=== PATIENT | male | born 1995 | race Caucasian/White ===

== ENCOUNTER 2016-10-04 13:00 | Emergency (ER) | payer SELFPAY ==
[2016-10-04 13:01] VITALS: BMI 33.4
[2016-10-04 13:05] VITALS: BP 103/51; PULSE 68; RESP 18; TEMP 98.3; O2SAT 98
[2016-10-04] MEDS ORDERED: Albuterol 0.083% Inhal Sol (2.5 mg/3 mL) UD INH STA (13:24)
[2016-10-04] MEDS ORDERED: Albuterol 0.083% Inhal Sol (2.5 mg/3 mL) UD ONE (13:29)
--- NOTE | 2016-10-04 13:49 | C.PDOC ---
History Of Present Illness 21 year old male presents to the ED with complaints of intermittent productive cough with yellow sputum present for the last four week. Patient has a history of asthma as a child that he states he has out grown. He notes pleuric pain, fever, and chills but denies runny nose, SOB, and any sick contacts. Time Seen by Provider: 10/04/16 13:10 Chief Complaint (Nursing): Cough, Cold, Congestion Past Medical History Vital Signs: Last Vital Signs Temp 98.3 F 10/04/16 13:04 Pulse 68 10/04/16 13:04 Resp 18 10/04/16 13:04 BP 103/51 L 10/04/16 13:04 Pulse Ox 98 10/04/16 13:51 - [employer] Procedures UNILAT ING OMAR REP NOS (11/16/12) - Social History Hx Alcohol Use: No Hx Substance Use: No - Immunization History Hx Tetanus Toxoid Vaccination: No Hx Influenza Vaccination: No Hx Pneumococcal Vaccination: No Review Of Systems Constitutional: Positive for: Fever, Chills ENT: Positive for: Throat Pain (mild sore throat). Negative for: Nose Discharge Respiratory: Positive for: Cough (intermittent productive cough ), Pleuritic Pain, Sputum (yellow ). Negative for: Shortness of Breath Physical Exam - Physical Exam Appears: Non-toxic, No Acute Distress Skin: Warm, Dry Ear(s): Bilateral: Normal Oral Mucosa: Moist Throat: Normal Cardiovascular: Rhythm Regular, No Murmur Respiratory: No Rales, No Rhonchi, No Stridor, No Wheezing, Other (mild decreased air entry bilaterally ) Gastrointestinal/Abdominal: Soft, No Tenderness, No Distention, No Guarding, No Rebound Extremity: Normal ROM, No Tenderness Neurological/Psych: Oriented x3 ED Course And Treatment O2 Sat by Pulse Oximetry: 98 - Radiology CXR: Interpreted by Me, Viewed By Me CXR Interpretation: Yes: No Acute Disease Progress Note: Patient was given Alburterol, benzonatate, and a nebulizer treatment and prescribed the same. Disposition Counseled Patient/Family Regarding: Studies Performed, Diagnosis, Need For Followup, Rx Given - Disposition Referrals: [facility] [Outside] Disposition Time: 13:45 Additional Instructions: FOLLOW UP WITH YOUR DOCTOR IN 1-2 DAYS USE MEDICATIONS DIRECTED RETURN TO ER IF SYMPTOMS WORSEN Prescriptions: Naproxen [Naprosyn Tab] 375 mg PO BID PRN #20 tab PRN Reason: pain Benzonatate [Tessalon Perles] 100 mg PO BID PRN #15 sgl PRN Reason: Cough Albuterol HFA [Ventolin HFA 90 mcg/actuation (8 g)] 0.09 mg IH Q4 PRN #1 puff PRN Reason: Wheezing Instructions: Upper Respiratory Infection (ED), Viral Syndrome (ED) Forms: School Excuse Print Language: ANGOLAN - POA Present On Arrival: None - Clinical Impression Clinical Impression: Viral disease, Upper respiratory infection - Scribe Statement The provider has reviewed the documentation as recorded by the Scribe Provider Attestation: Gisselle King All medical record entries made by the Scribe were at my direction and personally dictated by me. I have reviewed the chart and agree that the record accurately reflects my personal performance of the history, physical exam, medical decision making, and the department course for this patient. I have also personally directed, reviewed, and agree with the discharge instructions and disposition.
--- NOTE | 2016-10-04 16:39 | RAD ---
HISTORY: perisistent cough COMPARISON: No prior. TECHNIQUE: Chest PA and lateral FINDINGS: LUNGS: No active pulmonary disease. PLEURA: No significant pleural effusion identified. No pneumothorax apparent. CARDIOVASCULAR: Normal. OSSEOUS STRUCTURES: No significant abnormalities. VISUALIZED UPPER ABDOMEN: Normal. OTHER FINDINGS: None. IMPRESSION: No active disease.
== END 2016-10-04 14:29 | disposition home or self-care (01) ==
LOC: C.ER 13:00
DX: B34.9 Viral infection, unspecified (principal); J06.9 Acute upper respiratory infection, unspecified

== ENCOUNTER 2016-10-28 16:41 | Emergency (ER) | payer SELFPAY ==
[2016-10-28 17:02] VITALS: BMI 19.8
--- NOTE | 2016-10-28 18:33 | C.PDOC ---
History Of Present Illness 21 y/o male sent to ED by school psychologist for evaluation. Pt reports being sleep deprived at times, and currently hasn't slept in 35 hours. Pt admits to marijuana use, denies other drug use. Pt denies SI, HI, fever, or any other complaints. No history of psychiatric diagnosis. Chief Complaint (Nursing): Psychiatric Evaluation History Per: Patient History/Exam Limitations: no limitations Onset/Duration Of Symptoms: Hrs Current Symptoms Are (Timing): Still Present Suicide/Self Injury Attempted (Context): None Modifying Factor(s): Marijuana Severity: Mild Associated Symptoms: denies: Suicidal Thoughts Involuntary Hold By: None Recent travel outside of the [place]: No Past Medical History Reviewed: Historical Data, Nursing Documentation, Vital Signs Vital Signs: Last Vital Signs Temp 98.1 F 10/28/16 17:02 Pulse 58 L 10/28/16 17:02 Resp 16 10/28/16 17:02 BP 133/66 10/28/16 17:02 Pulse Ox 100 10/28/16 18:35 - Medical History PMH: Anxiety, Asthma - [facility] Procedures UNILAT ING OMAR REP NOS (11/16/12) Family History: States: Unknown Family Hx - Social History Hx Alcohol Use: No Hx Substance Use: Yes - Immunization History Hx Tetanus Toxoid Vaccination: No Hx Influenza Vaccination: No Hx Pneumococcal Vaccination: No Review Of Systems Except As Marked, All Systems Reviewed And Found Negative. Constitutional: Negative for: Fever Cardiovascular: Negative for: Chest Pain Respiratory: Negative for: Shortness of Breath Gastrointestinal: Negative for: Vomiting, Abdominal Pain Psych: Negative for: Suicidal ideation Physical Exam - Physical Exam Appears: Non-toxic, No Acute Distress Skin: Warm, Dry, No Rash Head: Atraumatic, Normacephalic Eye(s): bilateral: PERRL Neck: Normal ROM, Supple Chest: Symmetrical Cardiovascular: Rhythm Regular Respiratory: Normal Breath Sounds, No Rales, No Rhonchi, No Wheezing Extremity: Bilateral: Atraumatic Neurological/Psych: Oriented x3, Normal Speech ED Course And Treatment O2 Sat by Pulse Oximetry: 100 (on room air) Pulse Ox Interpretation: Normal Medical Decision Making Medical Decision Making: Plan: labs, UA Disposition - Disposition Disposition Time: 19:00 Condition: UNKNOWN - Clinical Impression Clinical Impression: Drug use, Anxiety - Scribe Statement The provider has reviewed the documentation as recorded by the Laurence Tomas Provider Attestation: All medical record entries made by the Laurence were at my direction and personally dictated by me. I have reviewed the chart and agree that the record accurately reflects my personal performance of the history, physical exam, medical decision making, and the department course for this patient. I have also personally directed, reviewed, and agree with the discharge instructions and disposition. Physician Patient Turnover Patient Signed Over To: Brian Miranda Handoff Comments: crisis evaluation and dispo
--- NOTE | 2016-10-28 18:40 | C.PDOC ---
Chief Complaint (Nursing): Psychiatric Evaluation Past Medical History Vital Signs: Last Vital Signs Temp 98.1 F 10/28/16 17:02 Pulse 58 L 10/28/16 17:02 Resp 16 10/28/16 17:02 BP 133/66 10/28/16 17:02 Pulse Ox 100 10/28/16 17:02 - Medical History PMH: Anxiety, Asthma - [facility] Procedures UNILAT ING OMAR REP NOS (11/16/12) - Social History Hx Alcohol Use: No Hx Substance Use: Yes - Immunization History Hx Tetanus Toxoid Vaccination: No Hx Influenza Vaccination: No Hx Pneumococcal Vaccination: No ED Course And Treatment O2 Sat by Pulse Oximetry: 100
[2016-10-28 19:16] LABS: BASO % 0.5 % (0.0-2.0); EOS # 0.1 K/uL (0.0-0.7); EOS % 0.8 % (0.0-4.0); HEMATOCRIT 38.8 % (35.0-51.0); LYMPH # 1.8 K/uL (1.0-4.3); LYMPH % 27.2 % (20.0-40.0); MEAN CELL VOLUME 90.4 fL (80.0-94.0); MEAN CORPUSCULAR HEMOGLOBIN 30.8 pg (27.0-31.0); MEAN PLATELET VOLUME 7.7 fL (7.2-11.7); MONO # 0.6 K/uL (0.0-0.8); MONO % 8.8 % (0.0-10.0); NRBC % 0.1 % (0.0-2.0); WHITE BLOOD COUNT 6.5 K/uL (4.8-10.8)
[2016-10-28 19:25] LABS: CHLORIDE 100 mmol/L (98-107); POTASSIUM 3.7 mmol/L (3.6-5.2); SODIUM 140 mmol/L (132-148)
[2016-10-28 19:27] LABS: ALB/GLOB RATIO 1.5 (1.0-2.1); ALKALINE PHOSPHATASE 62 U/L (38-126); AST/SGOT 45 U/L (17-59); BILIRUBIN,TOTAL 0.5 mg/dL (0.2-1.3); CARBON DIOXIDE 25 mmol/L (22-30); GFR AFRICAN-AMERICAN > 60; TOTAL PROTEIN 7.8 g/dL (6.3-8.3)
[2016-10-28 19:28] LABS: ALCOHOL SERUM < 10 mg/dl (0-10); ALT/SGPT 42 U/L (21-72); BLOOD UREA NITROGEN 10 mg/dL (9-20); GLUCOSE,RANDOM 90 mg/dL (75-110)
[2016-10-28 19:35] LABS: URINE BACTERIA OCC (<OCC); URINE BILIRUBIN NEGATIVE (NEGATIVE); URINE BLOOD NEGATIVE (NEGATIVE); URINE COLOR Yellow (YELLOW); URINE GLUCOSE (UA) NORMAL (Normal); URINE KETONE NEGATIVE (NEGATIVE); URINE LEUKOCYTE ESTERASE NEG Leu/uL (Negative); URINE PROTEIN NEGATIVE (NEGATIVE); URINE UROBILINOGEN NORMAL mg/dL (0.2-1.0)
[2016-10-28 20:06] VITALS: BP 127/82; PULSE 56; RESP 18; TEMP 97.8; O2SAT 99
== END 2016-10-28 21:17 | disposition home or self-care (01) ==
LOC: C.ER 16:41
DX: F31.9 Bipolar disorder, unspecified (principal); F41.9 Anxiety disorder, unspecified; F12.10 Cannabis abuse, uncomplicated
CPT/HCPCS: 80053; 81001; 85025; 99283; G0480